=== PATIENT | female | born 1965 | race Caucasian/White ===

== ENCOUNTER 2016-07-12 01:28 | Emergency (ER) | payer OTHER ==
[~2016-07-12 01:28] MED LIST: AMOX/K CLAV PO; ATA25 PO; CEL20 PO; GLU500 PO; HUMI SQ; LEVEMIR FLEX100 U/ML SQ; NEU100 PO; NORCO PO; SYN1 PO; V10 PO; ZOC20 PO; ZOF4
[2016-07-12 02:06] VITALS: BP 0/0
== END 2016-07-12 01:36 | disposition expired ==
LOC: ED 01:28
DX: I46.9 Cardiac arrest, cause unspecified (principal)